=== PATIENT | female | born 1975 | race Caucasian/White ===

== ENCOUNTER → 2018-01-14 | Outpatient (REF) | payer OTHER | LOC: M LAB REF 13:56 | DX: Z12.4 Encounter for screening for malignant neoplasm of cervix (principal); R87.615 Unsatisfactory cytologic smear of cervix | CPT/HCPCS: G0123 ==

== ENCOUNTER → 2020-01-18 | Outpatient (CLI) | payer OTHER | LOC: M LABSMTC 13:10 | PROVIDERS: ATTEND Family Medicine | DX: Z03.818 Encounter for observation for suspected exposure to other biological agents ruled out (principal); Z11.59 Encounter for screening for other viral diseases ==

== ENCOUNTER → 2020-05-26 | Outpatient (REF) | LOC: M LAB 08:12 | PROVIDERS: ATTEND Nurse Practitioner Adult Health | DX: Z11.1 Encounter for screening for respiratory tuberculosis (principal) ==

== ENCOUNTER → 2021-06-21 | Outpatient (REF) | LOC: M EMP 12:05 | PROVIDERS: ATTEND Family Medicine | DX: Z20.822 Contact with and (suspected) exposure to COVID-19 (principal) ==

== ENCOUNTER → 2021-08-10 | Outpatient (REF) | payer OTHER | LOC: M WUC 20:05 | PROVIDERS: ATTEND Physician Assistant | DX: R30.0 Dysuria (principal) ==

== ENCOUNTER → 2021-11-15 | Outpatient (CLI) | payer OTHER | LOC: M WHC 12:40 | PROVIDERS: ATTEND Nurse Practitioner Family | DX: Z12.31 Encounter for screening mammogram for malignant neoplasm of breast (principal) ==

== ENCOUNTER → 2022-05-13 | Outpatient (CLI) | payer OTHER ==
[~2022-05-13] MED LIST: ALBU8.5H; BUPR300T92
== END ==
LOC: M LABSMTC 10:25
PROVIDERS: ATTEND Anesthesiology
DX: Z01.818 Encounter for other preprocedural examination (principal); Z11.52 Encounter for screening for COVID-19

== ENCOUNTER 2022-05-17 07:03 | Day surgery (SDC) | payer OTHER ==
[~2022-05-17] VITALS: Ht 170.2 cm; Wt 79.7 kg
[~2022-05-17 07:03] MED LIST changes: +NS 1,000 ML IV ONE
[2022-05-17] MEDS ORDERED: propofoL 200 MG/20 ML VIAL As Ordered ONE (08:11)
[2022-05-17] MEDS ORDERED: LIDOCAINE 2% MDV 20ML VIAL As Ordered ONE (08:11)
[2022-05-17 08:50] VITALS: BP 111/71
== END 2022-05-17 08:56 | disposition home or self-care (01) ==
LOC: M OPP 07:03
PROVIDERS: ATTEND Internal Medicine Gastroenterology
DX: Z12.11 Encounter for screening for malignant neoplasm of colon (principal); Z80.0 Family history of malignant neoplasm of digestive organs; D12.5 Benign neoplasm of sigmoid colon; K64.8 Other hemorrhoids; D49.0 Neoplasm of unspecified behavior of digestive system; Z79.899 Other long term (current) drug therapy; Z88.0 Allergy status to penicillin; Z88.5 Allergy status to narcotic agent; E28.2 Polycystic ovarian syndrome; D25.9 Leiomyoma of uterus, unspecified; D64.9 Anemia, unspecified; F17.200 Nicotine dependence, unspecified, uncomplicated; Z80.1 Family history of malignant neoplasm of trachea, bronchus and lung

== ENCOUNTER → 2022-08-02 | Outpatient (REF) ==
[~2022-08-02] MED LIST changes: -NS 1,000 ML IV ONE
[2022-08-02 12:25] LABS: RSV AMPLIFICATION NEGATIVE (NEGATIVE)
== END ==
LOC: M EMP 08:05
PROVIDERS: ATTEND Family Medicine
DX: Z20.822 Contact with and (suspected) exposure to COVID-19 (principal)

== ENCOUNTER → 2022-09-19 | Outpatient (REF) | LOC: M EMP 13:21 | PROVIDERS: ATTEND Family Medicine | DX: Z11.52 Encounter for screening for COVID-19 (principal) ==

== ENCOUNTER 2023-08-05 16:18 | Emergency (ER) | payer OTHER ==
[~2023-08-05] VITALS: Ht 170.2 cm; Wt 82.9 kg
[2023-08-05] MEDS ORDERED: RIVAROXABAN 15MG TAB (XARELTO) PO ONE (20:40)
[2023-08-05] MEDS ORDERED: XARE15TA PO (20:40)
[2023-08-05 20:58] VITALS: BP 122/74; TEMP 97.6; O2SAT 100
== END 2023-08-05 20:59 | disposition home or self-care (01) ==
LOC: M ED 16:18
DX: I80.02 Phlebitis and thrombophlebitis of superficial vessels of left lower extremity (principal); M25.462 Effusion, left knee; F17.200 Nicotine dependence, unspecified, uncomplicated; F10.10 Alcohol abuse, uncomplicated; Z88.0 Allergy status to penicillin; Z88.5 Allergy status to narcotic agent; Z79.899 Other long term (current) drug therapy

== ENCOUNTER → 2023-09-17 | Outpatient (CLI) | payer OTHER ==
[~2023-09-17] MED LIST changes: +XARE15TA PO
[2023-09-17 09:40] LABS: BASO # 0.1 10^3/uL (0.0-0.2); BASO % 0.8 % (0.0-1.0); EOS # 0.1 10^3/uL (0.0-0.5); HEMATOCRIT 28.5 % (36.0-47.0); HEMOGLOBIN 8.3 g/dl (12.0-15.5); LYMPH # 1.8 10^3/uL (1.5-5.0); LYMPH % 26.7 % (24.0-44.0); MEAN CORPUSCULAR HEMOGLOBIN 22.9 pg (27.0-33.0); MEAN CORPUSCULAR HGB CONC 29.1 g/dl (32.0-36.5); MEAN CORPUSCULAR VOLUME 78.5 fl (80.0-96.0); MONO # 0.5 10^3/uL (0.0-0.8); MONO % 6.9 % (2.0-8.0); NEUTROPHILS # 4.2 10^3/uL (1.5-8.5); NEUTROPHILS % 63.4 % (36.0-66.0); PLATELET COUNT, AUTOMATED 536 10^3/uL (150-450); RED BLOOD COUNT 3.63 10^6/uL (4.00-5.40); WHITE BLOOD COUNT 6.6 10^3/uL (4.0-10.0)
[2023-09-17 10:05] LABS: ALBUMIN 3.5 G/DL (3.2-5.2); ALKALINE PHOSPHATASE 55 U/L (46-116); ALT/SGPT 9 U/L (7.0-40); AST/SGOT 9 U/L (<34); BILIRUBIN,TOTAL 0.4 MG/DL (0.3-1.2); BLOOD UREA NITROGEN 12 MG/DL (9-23); CALCIUM LEVEL 8.5 MG/DL (8.5-10.1); CARBON DIOXIDE LEVEL 27 MMOL/L (20-31); CHLORIDE LEVEL 111 MMOL/L (98-107); CHOLESTEROL LEVEL 183 MG/DL (<200); CHOLESTEROL RISK RATIO 3.33 (<5); CREATININE FOR GFR 0.59 MG/DL (0.55-1.30); GLOMERULAR FILTRATION RATE > 60.0 (>51); GLUCOSE, FASTING 85 MG/DL (60-100); HDL CHOLESTEROL 54.8 MG/DL (>40); LDL CHOLESTEROL 107.4 MG/DL (<100); NON-HDL-C 128.2 MG/DL; POTASSIUM SERUM 4.1 MMOL/L (3.5-5.1); SODIUM LEVEL 140 MMOL/L (136-145); TOTAL PROTEIN 6.6 G/DL (5.7-8.2); TRIGLYCERIDES LEVEL 104 MG/DL (<150)
[2023-09-17 10:09] LABS: THYROID STIMULATING HORMONE 2.285 uIU/ML (0.55-4.78); TOTAL 25(OH) VITAMIN D 15.9 NG/ML (20.0-100.0)
== END ==
LOC: M RAD 07:51
PROVIDERS: ATTEND Physician Assistant
DX: G89.29 Other chronic pain (principal); M25.562 Pain in left knee; I82.812 Embolism and thrombosis of superficial veins of left lower extremity; F41.9 Anxiety disorder, unspecified; F17.210 Nicotine dependence, cigarettes, uncomplicated; Z13.220 Encounter for screening for lipoid disorders; S83.282A Other tear of lateral meniscus, current injury, left knee, initial encounter; X58.XXXA Exposure to other specified factors, initial encounter; Y92.9 Unspecified place or not applicable

== ENCOUNTER → 2023-09-26 | Outpatient (CLI) | payer OTHER ==
[2023-09-26 13:30] LABS: BASO # 0.1 10^3/uL (0.0-0.2); BASO % 0.6 % (0.0-1.0); EOS # 0.1 10^3/uL (0.0-0.5); EOS % 1.8 % (0.0-3.0); HEMATOCRIT 26.3 % (36.0-47.0); HEMOGLOBIN 7.7 g/dl (12.0-15.5); LYMPH % 24.9 % (24.0-44.0); MEAN CORPUSCULAR HEMOGLOBIN 22.7 pg (27.0-33.0); MEAN CORPUSCULAR HGB CONC 29.3 g/dl (32.0-36.5); MEAN CORPUSCULAR VOLUME 77.6 fl (80.0-96.0); MONO # 0.5 10^3/uL (0.0-0.8); MONO % 6.1 % (2.0-8.0); NEUTROPHILS # 5.3 10^3/uL (1.5-8.5); NEUTROPHILS % 66.2 % (36.0-66.0); PLATELET COUNT, AUTOMATED 456 10^3/uL (150-450); RED BLOOD COUNT 3.39 10^6/uL (4.00-5.40)
[2023-09-26 14:05] LABS: PERCENT SATURATION 2.8 % (13.2-45.0)
[2023-09-26 14:06] LABS: FERRITIN 6.3 NG/ML (7.3-270.7)
== END ==
LOC: M LAB 12:15
PROVIDERS: ATTEND Physician Assistant
DX: D50.0 Iron deficiency anemia secondary to blood loss (chronic) (principal)

== ENCOUNTER 2023-10-02 08:41 | Emergency (ER) | payer OTHER ==
[~2023-10-02] VITALS: Ht 170.2 cm; Wt 87.0 kg
[2023-10-02] MEDS ORDERED: ERGO500029 PO (08:58)
[2023-10-02] MEDS ORDERED: BUPR-71 PO (08:58)
[2023-10-02] MEDS ORDERED: MISO200T83 (08:58)
[2023-10-02 09:35] LABS: BASO # 0.1 10^3/uL (0.0-0.2); BASO % 0.6 % (0.0-1.0); EOS # 0.2 10^3/uL (0.0-0.5); HEMATOCRIT 28.8 % (36.0-47.0); HEMOGLOBIN 8.3 g/dl (12.0-15.5); LYMPH # 1.5 10^3/uL (1.5-5.0); MEAN CORPUSCULAR HEMOGLOBIN 22.3 pg (27.0-33.0); MEAN CORPUSCULAR HGB CONC 28.8 g/dl (32.0-36.5); MEAN CORPUSCULAR VOLUME 77.4 fl (80.0-96.0); MONO # 0.5 10^3/uL (0.0-0.8); MONO % 5.6 % (2.0-8.0); NEUTROPHILS # 6.3 10^3/uL (1.5-8.5); NEUTROPHILS % 73.4 % (36.0-66.0); PLATELET COUNT, AUTOMATED 487 10^3/uL (150-450); RED BLOOD COUNT 3.72 10^6/uL (4.00-5.40); WHITE BLOOD COUNT 8.6 10^3/uL (4.0-10.0)
[2023-10-02 09:50] LABS: INR 0.98; PROTHROMBIN TIME 12.7 SECONDS (12.5-14.5)
[2023-10-02 10:08] LABS: BLOOD UREA NITROGEN 9 MG/DL (9-23); CALCIUM LEVEL 8.3 MG/DL (8.5-10.1); CARBON DIOXIDE LEVEL 26 MMOL/L (20-31); CHLORIDE LEVEL 107 MMOL/L (98-107); CREATININE FOR GFR 0.58 MG/DL (0.55-1.30); GLOMERULAR FILTRATION RATE > 60.0 (>51); GLUCOSE, FASTING 101 MG/DL (60-100); IRON (FE) 12 UG/DL (50-170); PERCENT SATURATION 3.2 % (13.2-45.0); POTASSIUM SERUM 4.1 MMOL/L (3.5-5.1); SODIUM LEVEL 138 MMOL/L (136-145); TOTAL IRON BINDING CAPACITY 376 UG/DL (250-425)
[2023-10-02 10:09] LABS: VITAMIN B12 LEVEL 491 PG/ML (211-911)
[2023-10-02 10:10] LABS: FOLATE 17.96 NG/ML (>5.4)
[2023-10-02] MEDS ORDERED: XARE15TA PO (10:22)
[2023-10-02] MEDS ORDERED: HOME MED LIST COMPLETE! XX SCH (10:25)
[2023-10-02] MEDS ORDERED: ECOT325T6 PO (10:42)
[2023-10-02 11:09] VITALS: BP 127/76; TEMP 98.5; O2SAT 100
[2023-10-02 12:55] LABS: DRVV SCREEN 36.2 SECONDS; PTT LUPUS TYPE ANTICOAG SCREEN 0.91 (0-1.20)
== END 2023-10-02 11:19 | disposition home or self-care (01) ==
LOC: M ED 08:41
DX: N93.9 Abnormal uterine and vaginal bleeding, unspecified (principal); I82.819 Embolism and thrombosis of superficial veins of unspecified lower extremity; D64.9 Anemia, unspecified; E28.2 Polycystic ovarian syndrome; Z79.01 Long term (current) use of anticoagulants; Z79.82 Long term (current) use of aspirin; Z79.899 Other long term (current) drug therapy; Z88.0 Allergy status to penicillin; Z88.5 Allergy status to narcotic agent; Z86.718 Personal history of other venous thrombosis and embolism

== ENCOUNTER → 2023-10-03 | Outpatient (CLI) | payer OTHER ==
[~2023-10-03] MED LIST changes: +BUPR-71 PO; +ECOT325T6 PO; +ERGO500029 PO; +MISO200T83
== END ==
LOC: M RAD 09:27
PROVIDERS: ATTEND Physician Assistant
DX: Z12.2 Encounter for screening for malignant neoplasm of respiratory organs (principal); F17.218 Nicotine dependence, cigarettes, with other nicotine-induced disorders

== ENCOUNTER 2023-11-12 14:12 | Outpatient (CLI) | payer OTHER ==
[~2023-11-12] VITALS: Ht 170.2 cm; Wt 84.1 kg
[~2023-11-12 14:12] MED LIST changes: +ENOX120I3 SC; +FERR325T3 PO
[2023-11-12 14:25] VITALS: BP 122/74; O2SAT 100
[2023-11-12] MEDS: FERRIC CARBOXYMALTOSE INJ 750 MG in NS 250 ML (>50kg) IV ONE (14:32)
[2023-11-12 16:00] VITALS: BP 118/73; O2SAT 97
== END 2023-11-12 16:00 | disposition home or self-care (01) ==
LOC: M INFU 14:12
PROVIDERS: ATTEND Internal Medicine Hematology & Oncology
DX: D50.9 Iron deficiency anemia, unspecified (principal); Z88.0 Allergy status to penicillin; Z88.5 Allergy status to narcotic agent
CPT/HCPCS: 96365; J1439

== ENCOUNTER 2023-11-21 09:40 | Outpatient (CLI) | payer OTHER ==
[~2023-11-21] VITALS: Ht 170.2 cm; Wt 84.1 kg
[2023-11-21 09:40] VITALS: BP 114/56; O2SAT 98
[2023-11-21] MEDS: FERRIC CARBOXYMALTOSE INJ 750 MG in NS 250 ML (>50kg) IV ONE (09:57)
[2023-11-21 11:14] VITALS: BP 121/65; O2SAT 100
== END 2023-11-21 11:15 ==
LOC: M INFU 09:40
PROVIDERS: ATTEND Internal Medicine Hematology & Oncology
DX: D50.9 Iron deficiency anemia, unspecified (principal); Z88.0 Allergy status to penicillin; Z88.5 Allergy status to narcotic agent
CPT/HCPCS: 96365; J1439

== ENCOUNTER → 2024-09-13 | Outpatient (REF) | payer OTHER ==
[~2024-09-13] MED LIST changes: +BUPR-597; -BUPR300T92
[2024-09-13 17:15] LABS: ALBUMIN 3.6 G/DL (3.2-5.2); ALKALINE PHOSPHATASE 54 U/L (35-104); ALT/SGPT 10 U/L (7.0-40); AST/SGOT 9 U/L (<34); BILIRUBIN,TOTAL 0.3 MG/DL (0.3-1.2); BLOOD UREA NITROGEN 11 MG/DL (9-23); CALCIUM LEVEL 8.4 MG/DL (8.5-10.1); CARBON DIOXIDE LEVEL 27 MMOL/L (20-31); CHLORIDE LEVEL 107 MMOL/L (98-107); CHOLESTEROL LEVEL 178 MG/DL (<200); CHOLESTEROL RISK RATIO 3.32 (<5); CREATININE FOR GFR 0.58 MG/DL (0.55-1.30); GLOMERULAR FILTRATION RATE > 60.0 (>51); GLUCOSE, FASTING 80 MG/DL (60-100); HDL CHOLESTEROL 53.5 MG/DL (>40); IRON (FE) 15 UG/DL (50-170); LDL CHOLESTEROL 104.7 MG/DL (<100); NON-HDL-C 124.5 MG/DL; PERCENT SATURATION 3.9 % (13.2-45.0); POTASSIUM SERUM 4.5 MMOL/L (3.5-5.1); SODIUM LEVEL 141 MMOL/L (136-145); TOTAL IRON BINDING CAPACITY 383 UG/DL (250-425); TOTAL PROTEIN 7.2 G/DL (5.7-8.2); TRIGLYCERIDES LEVEL 99 MG/DL (<150)
[2024-09-13 17:18] LABS: BASO % 0.6 % (0.0-1.0); EOS # 0.1 10^3/uL (0.0-0.5); EOS % 1.9 % (0.0-3.0); HEMATOCRIT 35.2 % (36.0-47.0); HEMOGLOBIN 10.4 g/dl (12.0-15.5); LYMPH # 1.6 10^3/uL (1.5-5.0); LYMPH % 22.3 % (24.0-44.0); MEAN CORPUSCULAR HEMOGLOBIN 24.7 pg (27.0-33.0); MEAN CORPUSCULAR HGB CONC 29.5 g/dl (32.0-36.5); MEAN CORPUSCULAR VOLUME 83.6 fl (80.0-96.0); MONO # 0.5 10^3/uL (0.0-0.8); MONO % 6.7 % (2.0-8.0); NEUTROPHILS # 4.8 10^3/uL (1.5-8.5); NEUTROPHILS % 68.2 % (36.0-66.0); PLATELET COUNT, AUTOMATED 516 10^3/uL (150-450); RED BLOOD COUNT 4.21 10^6/uL (4.00-5.40); THYROID STIMULATING HORMONE 2.269 uIU/ML (0.55-4.78)
[2024-09-13 17:19] LABS: TOTAL 25(OH) VITAMIN D 21.3 NG/ML (20.0-100.0)
== END ==
LOC: M SFHCLERA 09:56
DX: D50.0 Iron deficiency anemia secondary to blood loss (chronic) (principal); F41.8 Other specified anxiety disorders; E55.9 Vitamin D deficiency, unspecified; F17.200 Nicotine dependence, unspecified, uncomplicated; Z13.220 Encounter for screening for lipoid disorders